=== PATIENT | female | born 1985 | race Caucasian/White ===

== ENCOUNTER 2017-07-06 10:44 | Emergency (ER) | payer OTHER, MEDICAID ==
[2017-07-06 11:40] VITALS: BP 128/79
--- NOTE | 2017-07-06 13:14 | UC ---
Neck Pain HPI - HPI Summary HPI Summary: 31 yo female c/o progressive worse neck pain, since Wednesday. Episodic "dizziness " describes as feeling of being on a boat sensation since Wednesday (today is Wednesday). No fever / chills. + hx neck pain x several years, never this bad. Recently returned from [place], walked, snorkeled. No scuba dive. Did fly in airplane. Has been driving several hours since returning home. Does not recall specific inciting event. Feels like something may be pinching inside neck. No p/d/w. But very painful to turn neck L>R. No lower ext issues. No b /b issues. Pt is Left handed. - History of Current Complaint Chief Complaint: UCBackPain Stated Complaint: NECK/SHOULDER PAIN Time Seen by Provider: 07/06/17 12:29 Hx Obtained From: Patient Hx Last Menstrual Period: 06/29/17 - Allergies/Home Medications Allergies/Adverse Reactions: Allergies Allergy/AdvReac Type Severity Reaction Status Date / Time Iodinated Diagnostic Agents Allergy Erythema, Verified 07/06/17 11:37 Hives, Swelling Home Medications: Home Medications Ibuprofen TAB* [Advil TAB*] 600 - 800 mg PO Q6H PRN 07/06/17 [History Confirmed 07/06/17] Norethin Acet & Estrad-Fe [08/21 1-20 mg-Mcg] 1 tab PO DAILY 07/06/17 [ History Confirmed 07/06/17] Pantoprazole TAB (NF) [Protonix TAB (NF)] 20 mg PO DAILY 07/06/17 [History Confirmed 07/06/17] PMH/Surg Hx/FS Hx/Imm Hx Previously Healthy: Yes - see hpi - Surgical History Surgical History: Yes Surgery Procedure, Year, and Place: Cholecystectomy, 2014, [place] - Social History Alcohol Use: Weekly Substance Use Type: None Smoking Status (MU): Former Smoker Amount Used/How Often: <1/2 PPD Length of Time of Smoking/Using Tobacco: On and Off since age 15 When Did the Patient Quit Smoking/Using Tobacco: ~05/2017 - Immunization History Most Recent Influenza Vaccination: Not the 2016/2017 Season Review Of Systems Constitutional: Positive: Negative Skin: Positive: Negative Eyes: Positive: Negative ENT: Positive: Negative Respiratory: Positive: Negative Cardiovascular: Positive: Negative Gastrointestinal: Positive: Negative Genitourinary: Positive: Negative Musculoskeletal: Positive: Other: - see hpi Neurological: Positive: Other - see hpi Psychological: Positive: Negative All Other Systems Reviewed And Are Negative: Yes Physical Exam Triage Information Reviewed: Yes Appearance: Well-Nourished Vital Signs: Initial Vital Signs Temp 98.3 F 07/06/17 11:31 Pulse 68 07/06/17 11:31 Resp 16 07/06/17 11:31 BP 128/79 07/06/17 11:31 Pulse Ox 100 07/06/17 11:31 Vital Signs Reviewed: Yes Eye Exam: Normal ENT Exam: Other - facial expressions symmetric. MMM. CN 1-12 intact, including sens to alcohol swab odor. ENT: Positive: TM dull Neck exam: Other - tender mid neck, more left than right, approx c4-6 region. Tenderness is not reproducible with pressure; however it is reproducible with turning head to the left and right. Hurts to bend neck. Neck: Positive: No Lymphadenopathy Respiratory Exam: Normal Respiratory: Positive: Chest non-tender, Lungs clear, Normal breath sounds, No respiratory distress, No accessory muscle use Cardiovascular Exam: Normal Cardiovascular: Positive: RRR, No Murmur, Pulses Normal, Brisk Capillary Refill Abdominal Exam: Normal Abdomen Description: Positive: Nontender Musculoskeletal Exam: Other - see neck exam above. Moves all 4 ext's, including from Bilat upper ext's (able to move above head and post rotation, although does c/o neck pain). Ax nerve sens +LT present. R/U pulses 2+ equal, cap refill good. Gait steady. DP, PT, patella, BR / R 2+ equal. Neurological Exam: Other - see above Psychological Exam: Normal Neck Pain Course/Dx - Course Course Of Treatment: Reviewed s/sx with pt. Recommend imaging and likely further ancillary (possible contrast), recommend further evaluation and management in ED. She requests to go to [facility]. Wishes to drive (EMS offered but she declined), reports has been driving last couple days. I spoke with Dr Madrid, ED. Questions as posed answered to the best of my ability. - Differential Dx/Diagnosis Provider Diagnoses: Neck pain, dizziness Discharge - Discharge Plan Condition: Stable Disposition: TRANS HIGHER L OF CARE FAC Referrals: Non Staff,Doctor [Primary Care Provider] - Additional Instructions: Please go directly to the Emergency Department. Call 911 for problems in the meantime.
== END 2017-07-06 13:17 | disposition short-term general hospital (02) ==
LOC: UCCORT 10:44
DX: M54.2 Cervicalgia (principal); R42 Dizziness and giddiness; Z91.041 Radiographic dye allergy status; Z90.49 Acquired absence of other specified parts of digestive tract; Z87.891 Personal history of nicotine dependence
CPT/HCPCS: 99202; G0463

== ENCOUNTER 2017-10-07 07:33 | Emergency (ER) | payer OTHER, MEDICAID ==
[2017-10-07 08:11] VITALS: BP 112/77
--- NOTE | 2017-10-07 08:30 | ED ---
Throat Pain/Nasal Congestion - HPI Summary HPI Summary: 31 yr old female with right ear pain for 5-7 days that has been getting worse. Worse when she chews. Denies fever, chills, sinus congestion, post nasal drip. No other complaints. - History of Current Complaint Chief Complaint: UCEar Time Seen by Provider: 10/07/17 08:15 - Allergies/Home Medications Allergies/Adverse Reactions: Allergies Allergy/AdvReac Type Severity Reaction Status Date / Time Iodinated Contrast- Oral and Allergy ERYTHEMA, Verified 10/07/17 08:04 IV Dye HIVES, SWELLING Home Medications: Home Medications Carbamide Peroxide [Ear Drops] 2 drop RIGHT EAR QID PRN 10/07/17 [History Confirmed 10/07/17] Norethindrone-E.estradiol-Iron [Microgestin Fe 1-20 mg-Mcg] 1 tab PO DAILY 10/07 [History Confirmed 10/07/17] PMH/Surg Hx/FS Hx/Imm Hx - Surgical History Surgery Procedure, Year, and Place: Cholecystectomy, 2014, [place] Infectious Disease History: No Infectious Disease History: Denies: Traveled Outside the [place] in Last 30 Days - Family History Known Family History: Positive: None - Social History Alcohol Use: Occasionally Substance Use Type: Reports: None Smoking Status (MU): Former Smoker Amount Used/How Often: <1/2 PPD Length of Time of Smoking/Using Tobacco: On and Off since age 15 Review of Systems Positive: Ear Ache, Nasal Discharge All Other Systems Reviewed And Are Negative: Yes Physical Exam Triage Information Reviewed: Yes Vital Signs On Initial Exam: Initial Vitals Temp Pulse Resp BP Pulse Ox 98.2 F 75 18 112/77 99 10/07/17 08:06 10/07/17 08:06 10/07/17 08:06 10/07/17 08:06 10/07/17 08:06 Vital Signs Reviewed: Yes Appearance: Positive: Well-Appearing, No Pain Distress Skin: Positive: Warm, Skin Color Reflects Adequate Perfusion Head/Face: Positive: Normal Head/Face Inspection. Negative: Temporal Artery Tenderness, TMJ Tenderness Eyes: Positive: EOMI ENT: Positive: Pharynx normal, TM red - right with retraction. Negative: Pharyngeal erythema, Nasal congestion, Nasal drainage Neck: Positive: Supple, Nontender, No Lymphadenopathy Respiratory/Lung Sounds: Positive: Clear to Auscultation, Breath Sounds Present Cardiovascular: Positive: RRR. Negative: Murmur Abdomen Description: Positive: Nontender Musculoskeletal: Positive: Strength/ROM Intact Neurological: Positive: Sensory/Motor Intact, Alert, Oriented to Person Place, Time, CN Intact II-III Psychiatric: Positive: Normal AVPU Assessment: Alert - Qing Coma Scale Best Eye Response: 4 - Spontaneous Best Motor Response: 6 - Obeys Commands Best Verbal Response: 5 - Oriented Coma Scale Total: 15 Diagnostics - Vital Signs Vital Signs Temp Pulse Resp BP Pulse Ox 10/07/17 08:06 98.2 F 75 18 112/77 99 - Laboratory Lab Statement: Any lab studies that have been ordered have been reviewed, and results considered in the medical decision making process. EENT Course/Dx - Course Course Of Treatment: 31 yr old with right OM. Rx wtih amox. She has flonase at home that she will use. - Diagnoses Provider Diagnoses: Otitis media Discharge - Discharge Plan Condition: Good Disposition: HOME Prescriptions: Amoxicillin PO (*) [Amoxicillin 500 MG CAP*] 500 mg PO TID #30 cap Patient Education Materials: Ear Infection (ED) Referrals: Rosa Isela Nieto MD [Primary Care Provider] - 2 Days
== END 2017-10-07 08:54 | disposition home or self-care (01) ==
LOC: UCCORT 07:33
DX: H66.91 Otitis media, unspecified, right ear (principal)
CPT/HCPCS: 99212; G0463